=== PATIENT | female | born 1965 | race Caucasian/White ===

== ENCOUNTER 2016-10-24 15:10 | Inpatient (IN) | payer OTHER ==
[~2016-10-24] VITALS: Ht 157.5 cm; Wt 153.1 kg
[2016-10-24 15:19] VITALS: BP 187/104; PULSE 105; RESP 18; TEMP 98; O2SAT 94
--- NOTE | 2016-10-24 15:26 | PD ---
HPI . Lucero Act Chief Complaint: Psychiatric Time Seen by Provider: 15:20 Travel History International Travel<30 days: No Contact w/Intl Traveler<30days: No History of Present Illness HPI The patient was brought here as a Lucero Act by law enforcement. No meaningful history can be obtained from the patient. Her papers state that she has a history of bipolar disorder and is noncompliant with her medications. She has become psychotic and aggressive towards her family. She has been destructive in her home. [facility]LY [facility] Social History Tobacco Use: No Allergies-Medications (Allergen,Severity, Reaction): Coded Allergies: No Known Allergies (Unverified , 10/24/16) Reported Meds & Prescriptions Reported Meds & Active Scripts Active Active Prescriptions or Reported Medications Unobtainable Review of Systems ROS Limitations: Psychotic Physical Exam Narrative GENERAL: Awake and alert. She is yelling obscenities. SKIN: Warm and dry. HEAD: Atraumatic. Normocephalic. EYES: Pupils equal and round. Extraocular movements are intact. NECK: Trachea midline. CARDIOVASCULAR: Regular rate and rhythm. RESPIRATORY: No accessory muscle use. MUSCULOSKELETAL: No obvious deformities. No edema. NEUROLOGICAL: Awake and alert. No obvious cranial nerve deficits. Motor grossly within normal limits. Normal speech. PSYCHIATRIC: Loud and angry. Poor judgment. Data Data Last Documented VS Vital Signs Date Time Temp Pulse Resp B/P Pulse Ox O2 Delivery O2 Flow Rate FiO2 10/24/16 15:19 98.0 105 18 187/104 94 Orders Complete Blood Count With Diff (10/24/16 15:20) Comprehensive Metabolic Panel (10/24/16 15:20) Psych Screen (10/24/16 15:20) Drug Screen, Random Urine (10/24/16 15:20) Alcohol (Ethanol) (10/24/16 15:20) Sodium Chlor 0.9% 1000 Ml Inj (Ns 1000 M (10/24/16 15:45) Labs Laboratory Tests Test 10/24/16 10/24/16 15:30 15:49 White Blood Count 15.2 TH/MM3 Red Blood Count 4.98 MIL/MM3 Hemoglobin 13.0 GM/DL Hematocrit 41.7 % Mean Corpuscular Volume 83.9 FL Mean Corpuscular Hemoglobin 26.2 PG Mean Corpuscular Hemoglobin 31.3 % Concent Red Cell Distribution Width 15.9 % Platelet Count 402 TH/MM3 Mean Platelet Volume 9.6 FL Neutrophils (%) (Auto) 66.6 % Lymphocytes (%) (Auto) 23.7 % Monocytes (%) (Auto) 8.3 % Eosinophils (%) (Auto) 1.1 % Basophils (%) (Auto) 0.3 % Neutrophils # (Auto) 10.1 TH/MM3 Lymphocytes # (Auto) 3.6 TH/MM3 Monocytes # (Auto) 1.3 TH/MM3 Eosinophils # (Auto) 0.2 TH/MM3 Basophils # (Auto) 0.1 TH/MM3 CBC Comment DIFF FINAL Differential Comment Sodium Level 137 MEQ/L Potassium Level 3.6 MEQ/L Chloride Level 99 MEQ/L Carbon Dioxide Level 24.0 MEQ/L Anion Gap 14 MEQ/L Blood Urea Nitrogen 19 MG/DL Creatinine 1.25 MG/DL Estimat Glomerular Filtration 45 ML/MIN Rate Random Glucose 167 MG/DL Calcium Level 9.6 MG/DL Total Bilirubin 0.6 MG/DL Aspartate Amino Transf 68 U/L (AST/SGOT) Alanine Aminotransferase 50 U/L (ALT/SGPT) Alkaline Phosphatase 118 U/L Total Protein 9.4 GM/DL Albumin 3.8 GM/DL Ethyl Alcohol Level LESS THAN 3 MG/DL Urine Opiates Screen NEG Urine Barbiturates Screen NEG Urine Amphetamines Screen NEG Urine Benzodiazepines Screen NEG Urine Cocaine Screen NEG Urine Cannabinoids Screen NEG MDM Medical Decision Making Medical Screen Exam Complete: Yes Emergency Medical Condition: Yes Medical Record Reviewed: Yes (this patient has no previous records here.) Differential Diagnosis Differential diagnosis of psychosis includes but is not limited to schizophrenia , schizoaffective disorder, bipolar disorder, intoxication, substance abuse, dementia Narrative Course Patient is brought to us as a Lucero Act. She will be medically cleared and referred to psychiatry. CBC & BMP Diagram 10/24/16 15:30 Her tox screen is negative. This patient is medically clear for psychiatric evaluation. Diagnosis Primary Impression: Medical clearance for psychiatric admission Scripts Unable to Obtain Active Prescriptions or Reported Meds Condition: Amanda Pool MD Oct 24, 2016 15:26
[2016-10-24] MEDS ORDERED: SODIUM CHLOR 0.9% 1000 ML INJ 1,000 ML IV ONE (15:45)
[2016-10-24 16:03] LABS: AUTOMATED NEUTROPHIL # 10.1 TH/MM3 (1.8-7.7); BASOPHIL # 0.1 TH/MM3 (0-0.2); BASOPHIL % 0.3 % (0.0-2.0); EOSINOPHIL # 0.2 TH/MM3 (0-0.4); EOSINOPHIL % 1.1 % (0.0-4.0); HEMATOCRIT 41.7 % (35.0-46.0); HEMO FLAGS DIFF FINAL; LYMPH % 23.7 % (9.0-44.0); LYMPHOCYTE # 3.6 TH/MM3 (1.0-4.8); MEAN CELL VOLUME 83.9 FL (80.0-100.0); MEAN CORPUSCULAR HEMOGLOBIN 26.2 PG (27.0-34.0); MEAN CORPUSCULAR HGB CONC 31.3 % (32.0-36.0); MONO % 8.3 % (0.0-8.0); NEUT % 66.6 % (16.0-70.0); PLATELET COUNT 402 TH/MM3 (150-450); RED BLOOD COUNT 4.98 MIL/MM3 (4.00-5.30); RED CELL DISTRIBUTION WIDTH 15.9 % (11.6-17.2); WHITE BLOOD COUNT 15.2 TH/MM3 (4.0-11.0)
[2016-10-24 16:32] LABS: AMPHETAMINE, URINE NEG (NEG); BARBITURATES, URINE NEG (NEG); COCAINE, URINE NEG (NEG)
[2016-10-24 16:35] LABS: ALT (GPT) 50 U/L (10-53); ANION GAP 14 MEQ/L (5-15); AST (GOT) 68 U/L (15-37); BLOOD UREA NITROGEN 19 MG/DL (7-18); CHLORIDE 99 MEQ/L (98-107); GLOMERULAR FILTRATION RATE 45 ML/MIN (>89); POTASSIUM 3.6 MEQ/L (3.5-5.1); SODIUM (NA) 137 MEQ/L (136-145)
[2016-10-24 16:37] LABS: ALKALINE PHOSPHATASE 118 U/L (45-117); TOTAL BILIRUBIN ADULT 0.6 MG/DL (0.2-1.0)
[2016-10-24 17:34] VITALS: BP 183/99; PULSE 104; RESP 21; TEMP 98.1; O2SAT 97
[2016-10-24 18:52] VITALS: BP 118/58; PULSE 105; RESP 16; O2SAT 98
--- NOTE | 2016-10-24 19:10 | PD ---
Physical Exam Date Seen by Provider: Oct 24, 2016 Time Seen by Provider: 18:50 Narrative I was called to [facility] pod for [facility]. Patient was recently moved to the [facility], was initially conversant but was found down by psychiatric nurses, cyanotic, laying on the bed, urinary incontinence noted. She was placed in supine position by us, [id number] initiated with improvement cyanosis. She is having sonorous respirations which are spontaneous. Good air movement bilaterally. Palpable pulses. Blood pressure was 200/100. Blood sugar was elevated. Notable EKG shows normal sinus perfusing rhythm. Patient was then moved to delta pod and signed out to Dr. Small. Data Data Last Documented VS Vital Signs Date Time Temp Pulse Resp B/P Pulse Ox O2 Delivery O2 Flow Rate FiO2 10/24/16 18:52 105 16 118/58 98 Non-Rebreather 15 10/24/16 17:34 98.1 Orders Complete Blood Count With Diff (10/24/16 15:20) Comprehensive Metabolic Panel (10/24/16 15:20) Psych Screen (10/24/16 15:20) Drug Screen, Random Urine (10/24/16 15:20) Alcohol (Ethanol) (10/24/16 15:20) Sodium Chlor 0.9% 1000 Ml Inj (Ns 1000 M (10/24/16 15:45) Labs Laboratory Tests Test 10/24/16 10/24/16 15:30 15:49 White Blood Count 15.2 TH/MM3 Red Blood Count 4.98 MIL/MM3 Hemoglobin 13.0 GM/DL Hematocrit 41.7 % Mean Corpuscular Volume 83.9 FL Mean Corpuscular Hemoglobin 26.2 PG Mean Corpuscular Hemoglobin 31.3 % Concent Red Cell Distribution Width 15.9 % Platelet Count 402 TH/MM3 Mean Platelet Volume 9.6 FL Neutrophils (%) (Auto) 66.6 % Lymphocytes (%) (Auto) 23.7 % Monocytes (%) (Auto) 8.3 % Eosinophils (%) (Auto) 1.1 % Basophils (%) (Auto) 0.3 % Neutrophils # (Auto) 10.1 TH/MM3 Lymphocytes # (Auto) 3.6 TH/MM3 Monocytes # (Auto) 1.3 TH/MM3 Eosinophils # (Auto) 0.2 TH/MM3 Basophils # (Auto) 0.1 TH/MM3 CBC Comment DIFF FINAL Differential Comment Sodium Level 137 MEQ/L Potassium Level 3.6 MEQ/L Chloride Level 99 MEQ/L Carbon Dioxide Level 24.0 MEQ/L Anion Gap 14 MEQ/L Blood Urea Nitrogen 19 MG/DL Creatinine 1.25 MG/DL Estimat Glomerular Filtration 45 ML/MIN Rate Random Glucose 167 MG/DL Calcium Level 9.6 MG/DL Total Bilirubin 0.6 MG/DL Aspartate Amino Transf 68 U/L (AST/SGOT) Alanine Aminotransferase 50 U/L (ALT/SGPT) Alkaline Phosphatase 118 U/L Total Protein 9.4 GM/DL Albumin 3.8 GM/DL Ethyl Alcohol Level LESS THAN 3 MG/DL Urine Opiates Screen NEG Urine Barbiturates Screen NEG Urine Amphetamines Screen NEG Urine Benzodiazepines Screen NEG Urine Cocaine Screen NEG Urine Cannabinoids Screen NEG MDM Medical Record Reviewed: Yes Supervised Visit with JENNY: No Physician Communication Physician Communication Case signed off to Dr. Small for further evaluation and treatment. Diagnosis Primary Impression: Unresponsive episode Admitting Information Admitting Physician Requests: Admit Scripts Unable to Obtain Active Prescriptions or Reported Meds Sherman Woodard MD Oct 24, 2016 19:10
[2016-10-24] MEDS ORDERED: levETIRAcetam 1000 MG INJ 100 ML IV ONE (19:15)
[2016-10-24] MEDS ORDERED: SODIUM CHLOR 0.9% 1000 ML INJ 1,000 ML IV SCH (19:15)
--- NOTE | 2016-10-24 19:47 | PD ---
HPI Chief Complaint: Psychiatric Symptoms Time Seen by Provider: 18:57 Travel History International Travel<30 days: No Contact w/Intl Traveler<30days: No Traveled to known affect area: No History of Present Illness HPI 51-year-old female was brought to the medical room from psychiatric area of the emergency room.. Patient was seen this morning in medical area of the emergency room. Patient was reported to have psychiatric history, bipolar disorder . Patient was medically cleared and moved to psychiatric area of the emergency room for psychiatric evaluation. Patient was found unresponsive with dusky color on the face. Patient had urinary incontinence at that time. ROSALIND MORAN was called. ED physician came to see the patient at bedside. Patient was unresponsive without any movement. Patient was given oxygen. Patient had pulse and blood pressure at that time. Patient was brought to medical bed for evaluation. Patient was lethargic and answer questions occasionally. Patient states that she has history of seizure and has not been taking her seizure medication. Patient denies any headache. Patient denies any chest pain or shortness of breath. Patient denies abdominal pain. 1952 PM. Patient now states that to me and Dr. Lira that she does not have any history of seizure. PFSH Past Medical History Bipolar Disorder: Yes Diminished Hearing: No Hypertension: Yes Tetanus Vaccination: Unknown Influenza Vaccination: No ?: Not Past Surgical History Hysterectomy: Yes Social History Alcohol Use: No Tobacco Use: No Substance Use: No Allergies-Medications (Allergen,Severity, Reaction): Coded Allergies: No Known Allergies (Unverified , 10/24/16) Reported Meds & Prescriptions Reported Meds & Active Scripts Active Active Prescriptions or Reported Medications Unobtainable Review of Systems General / Constitutional: No: Fever Eyes: No: Visual changes HENT: No: Headaches Cardiovascular: No: Chest Pain or Discomfort Respiratory: No: Shortness of Breath Gastrointestinal: No: Abdominal Pain Genitourinary: No: Dysuria Musculoskeletal: No: Pain Skin: No Rash Neurologic: No: Weakness Psychiatric: No: Depression Endocrine: No: Polydipsia Hematologic/Lymphatic: No: Easy Bruising Physical Exam Narrative GENERAL: Well-nourished, well-developed patient. SKIN: Focused skin assessment warm/dry. HEAD: Normocephalic. EYES: No scleral icterus. No injection or drainage. Pupils 2 mm equal reactive. NECK: Supple, trachea midline. No JVD or lymphadenopathy. CARDIOVASCULAR: Regular rate and rhythm without murmurs, gallops, or rubs. RESPIRATORY: Breath sounds equal bilaterally. No accessory muscle use. GASTROINTESTINAL: Abdomen soft, non-tender, nondistended. MUSCULOSKELETAL: No cyanosis, or edema. BACK: Nontender without obvious deformity. No CVA tenderness. Neurologic exam: Patient's lethargic. Patient answers questions appropriately. Patient moves all extremity well. No obvious focal neurological deficit. Data Data Last Documented VS Vital Signs Date Time Temp Pulse Resp B/P Pulse Ox O2 Delivery O2 Flow Rate FiO2 10/24/16 18:52 105 16 118/58 98 Non-Rebreather 15 10/24/16 17:34 98.1 Orders Complete Blood Count With Diff (10/24/16 15:20) Comprehensive Metabolic Panel (10/24/16 15:20) Psych Screen (10/24/16 15:20) Drug Screen, Random Urine (10/24/16 15:20) Alcohol (Ethanol) (10/24/16 15:20) Sodium Chlor 0.9% 1000 Ml Inj (Ns 1000 M (10/24/16 15:45) Basic Metabolic Panel (Bmp) (10/24/16 19:09) Ct Brain W/O Iv Contrast(Rout) (10/24/16 19:09) Iv Access Insert/Monitor (10/24/16 19:09) Ecg Monitoring (10/24/16 19:09) Oximetry (10/24/16 19:09) Levetiracetam 1000 Mg Inj (Keppra 1000 M (10/24/16 19:15) Sodium Chlor 0.9% 1000 Ml Inj (Ns 1000 M (10/24/16 19:15) Consult Neurology (10/24/16 ) (Hub Use Only)Inp Phy Cons/Ref (10/24/16 ) Arterial Blood Gas (Abg) (10/24/16 ) Creatine Kinase (Cpk) (10/24/16 20:16) Troponin I (10/24/16 20:16) B-Type Natriuretic Peptide (10/24/16 20:16) Electrocardiogram (10/24/16 19:00) CKMB (10/24/16 19:00) CKMB% (10/24/16 19:00) Labs Laboratory Tests Test 10/24/16 10/24/16 10/24/1617 15:30 15:49 19:00 20:13 White Blood Count 15.2 TH/MM3 Red Blood Count 4.98 MIL/MM3 Hemoglobin 13.0 GM/DL Hematocrit 41.7 % Mean Corpuscular Volume 83.9 FL Mean Corpuscular Hemoglobin 26.2 PG Mean Corpuscular Hemoglobin 31.3 % Concent Red Cell Distribution Width 15.9 % Platelet Count 402 TH/MM3 Mean Platelet Volume 9.6 FL Neutrophils (%) (Auto) 66.6 % Lymphocytes (%) (Auto) 23.7 % Monocytes (%) (Auto) 8.3 % Eosinophils (%) (Auto) 1.1 % Basophils (%) (Auto) 0.3 % Neutrophils # (Auto) 10.1 TH/MM3 Lymphocytes # (Auto) 3.6 TH/MM3 Monocytes # (Auto) 1.3 TH/MM3 Eosinophils # (Auto) 0.2 TH/MM3 Basophils # (Auto) 0.1 TH/MM3 CBC Comment DIFF FINAL Differential Comment Sodium Level 137 MEQ/L 135 MEQ/L Potassium Level 3.6 MEQ/L 3.3 MEQ/L Chloride Level 99 MEQ/L 97 MEQ/L Carbon Dioxide Level 24.0 MEQ/L 18.3 MEQ/L Anion Gap 14 MEQ/L 20 MEQ/L Blood Urea Nitrogen 19 MG/DL 19 MG/DL Creatinine 1.25 MG/DL 1.57 MG/DL Estimat Glomerular Filtration 45 ML/MIN 35 ML/MIN Rate Random Glucose 167 MG/DL 284 MG/DL Calcium Level 9.6 MG/DL 9.6 MG/DL Total Bilirubin 0.6 MG/DL Aspartate Amino Transf 68 U/L (AST/SGOT) Alanine Aminotransferase 50 U/L (ALT/SGPT) Alkaline Phosphatase 118 U/L B-Type Natriuretic Peptide 48 PG/ML Total Protein 9.4 GM/DL Albumin 3.8 GM/DL Ethyl Alcohol Level LESS THAN 3 MG/DL Urine Opiates Screen NEG Urine Barbiturates Screen NEG Urine Amphetamines Screen NEG Urine Benzodiazepines Screen NEG Urine Cocaine Screen NEG Urine Cannabinoids Screen NEG Total Creatine Kinase 1479 U/L Creatine Kinase MB 2.2 NG/ML Creatine Kinase MB % 0.1 % Troponin I 0.13 NG/ML Blood Gas Puncture Site LT RADIAL Blood Gas Patient Temperature 98.6 Blood Gas HCO3 25 mmol/L Blood Gas Base Excess -0.1 mmol/L Blood Gas Oxygen Saturation 89 % Arterial Blood pH 7.37 Arterial Blood Partial 44 mmHg Pressure CO2 Arterial Blood Partial 65 mmHG Pressure O2 Arterial Blood Oxygen Content 15.1 Vol % Arterial Blood 1.0 % Carboxyhemoglobin Arterial Blood Methemoglobin 0.5 % Blood Gas Hemoglobin 12.1 G/DL Oxygen Delivery Device NASAL CANNULA Blood Gas Liter Flow 2 L/M MDM Medical Decision Making Medical Screen Exam Complete: Yes Emergency Medical Condition: Yes Interpretation(s) 21:35 PM. ABG patient is on 2 L nasal cannula pH 7.37. PCO2 44. PO2 65. O2 sat 89%. CBC WBC 15.2. Normal differential. Sodium 135. Potassium 3.3. Chloride 97. Bicarbonate 18.3. BUN 19. Creatinine 1.57. Glucose 284. Total CK 1479. Normal MB fraction. Troponin 0.13. Urine tox screen negative. Alcohol negative. Differential Diagnosis Differential diagnosis including apnea, seizure disorder, pulmonary arrest, aspiration, TIA, CVA, arrhythmia. Narrative Course 51-year-old female with episode of unresponsiveness. Unknown cause. Patient states that she has history of seizure after the episode however now states that she does not have any history of seizure. I spoke with neurologist before patient states that she does not history of seizure. Keppra 1 g IV given. We will hold off Keppra for now until EEG and neurology consultation. Diagnosis Primary Impression: Unresponsive episode Additional Impressions: Elevated troponin Rhabdomyolysis Qualified Code: M62.82 - Non-traumatic rhabdomyolysis Renal insufficiency Psychosis Qualified Code: F29 - Psychosis, unspecified psychosis type Admitting Information Admitting Physician Requests: Admit Scripts Unable to Obtain Active Prescriptions or Reported Meds Mich Samll MD Oct 24, 2016 19:47
[2016-10-24 20:24] LABS: BLOOD GAS BASE EXCESS -0.1 mmol/L (-2-2); BLOOD GAS HCO3 25 mmol/L (22-26); BLOOD GAS METHEMOGLOBIN 0.5 % (0-2); BLOOD GAS O2 HGB SATURATION 89 % (90-100); BLOOD GAS OXYGEN CONTENT 15.1 Vol % (12.0-20.0); BLOOD GAS PCO2 44 mmHg (38-42); BLOOD GAS PO2 65 mmHG (61-120); BLOOD GAS TOTAL HGB 12.1 G/DL (12.0-16.0); CRITICAL VALUE YES; DRAW SITE LT RADIAL; LITER FLOW 2 L/M; NUMBER OF ARTERIAL PUNCTURES 1; OXYGEN DEVICE NASAL CANNULA; TEMP CORR TO 98.6; ULNAR PULSE PRESENT
[2016-10-24 20:25] LABS: STAT YES
[2016-10-24 20:26] LABS: BICARBONATE 18.3 MEQ/L (21.0-32.0); POTASSIUM 3.3 MEQ/L (3.5-5.1)
[2016-10-24 21:22] LABS: CKMB 2.2 NG/ML (0.5-3.6)
--- NOTE | 2016-10-24 22:02 | RADRPT ---
EXAM DATE/TIME: 10/24/2016 21:56 [facility] COMPARISON: No previous studies available for comparison. INDICATIONS : Altered mental status. MEDICAL HISTORY : Unobtainable. SURGICAL HISTORY : Unobtainable. ENCOUNTER: Initial ACUITY: 1 day PAIN SCORE: Non-responsive. LOCATION: Bilateral chest FINDINGS: A single view of the chest demonstrates the lungs to be symmetrically aerated without evidence of mas s, infiltrate or effusion. Cardiomegaly. The cardiomediastinal contours are unremarkable. Osseous s tructures are intact. CONCLUSION: Cardiomegaly with clear lungs. Omi Shetty MD on October 24, 2016 at 22:00 Board Certified Radiologist. This report was verified electronically.
--- NOTE | 2016-10-24 22:24 | RADRPT ---
EXAM DATE/TIME: 10/24/2016 21:59 [facility] COMPARISON: No previous studies available for comparison. INDICATIONS : Altered mental status. RADIATION DOSE: 50.74 CTDIvol (mGy) MEDICAL HISTORY : Hypertension. Bipolar disorder. SURGICAL HISTORY : Hysterectomy. ENCOUNTER: Initial ACUITY: 1 day PAIN SCALE: 0/10 LOCATION: cranial TECHNIQUE: Multiple contiguous axial images were obtained of the head. Using automated exposure control and adj ustment of the mA and/or kV according to patient size, radiation dose was kept as low as reasonably a chievable to obtain optimal diagnostic quality images. DICOM format image data is available electro nically for review and comparison. FINDINGS: There is artifact at the skull base CEREBRUM: The ventricles are normal for age. No evidence of midline shift, mass lesion, hemorrhage or acute in farction. No extra-axial fluid collections are seen. POSTERIOR FOSSA: The cerebellum and brainstem are intact. The 4th ventricle is midline. The cerebellopontine angle i s unremarkable. EXTRACRANIAL: The visualized portion of the orbits is intact. SKULL: The calvaria is intact. No evidence of skull fracture. CONCLUSION: No acute intracranial disease. Omi Shetty MD on October 24, 2016 at 22:22 Board Certified Radiologist. This report was verified electronically.
[2016-10-24] MEDS ORDERED: LORazepam 2 MG/ML VIAL IV PUSH ONE (22:30)
[2016-10-24] MEDS ORDERED: SODIUM CHLORIDE 0.9% FLUSH 10 ML FLUSH IVF PRN (22:45)
[2016-10-24] MEDS ORDERED: ONDANSETRON HCL 4 MG/2 ML VIAL IV PRN ×2 (22:45→23:00)
--- NOTE | 2016-10-24 22:45 | HHI.HP ---
HPI Service Critical Care Medicine Primary Care Physician Unknown Admission Diagnosis apnea. Elevated troponin. Rhabdomyolysis. Renal insufficiency. Diagnosis: Travel History International Travel<30 Days: No Contact w/Intl Traveler <30 Da: No Traveled to Known Affected Are: No History of Present Illness 51-year-old female patient was brought here as a Lucero Act by law enforcement. No meaningful history can be obtained from the patient. Her papers state that she has a history of bipolar disorder and is noncompliant with her medications. She has become psychotic and aggressive towards her family. She has been destructive in her home. Patient was medically cleared and moved to psychiatric area of the emergency room for psychiatric evaluation. Patient was found unresponsive with dusky color on the face. She has had a urinary incontinence at that time. ROSALIND MORAN was called. ED physician came to see the patient at bedside. Patient was unresponsive without any movement. Patient was given oxygen. Patient had pulse and blood pressure at that time. Patient was brought to medical bed for evaluation. Patient was lethargic and answer questions occasionally. Patient states that she has history of seizure and has not been taking her seizure medication. Patient denies any headache. Patient denies any chest pain or shortness of breath. Patient denies abdominal pain. Review of Systems ROS Undetectable due to patient's altered mental status Past Family Social History Allergies: Coded Allergies: No Known Allergies (Unverified , 10/24/16) Past Medical History Bipolar Disorder Hypertension Past Surgical History Hysterectomy Reported Medications Reported Meds & Active Scripts Active Active Prescriptions or Reported Medications Unobtainable Active Ordered Medications Current Medications Medications (Trade) Dose Ordered Sig/Gracie Route PRN Reason Start Time Stop Time Status Last Admin Dose Admin Sodium Chloride (NS 1000 ml Inj) 1,000 ml @ 84 mls/hr [id number] IV 10/24/16 22:46 Sodium Chloride (NS Flush) 2 ml UNSCH PRN .XX FLUSH AFTER USING IV ACCESS 10/24/16 23:00 Sodium Chloride (NS Flush) 2 ml BID .XX 10/25/16 09:00 Acetaminophen (Tylenol) 650 mg Q6H PRN PO PAIN 1-10 AND/OR FEVER >101F 10/24/16 23:00 Famotidine (Pepcid) 20 mg Q12HR PO 10/25/16 09:00 Lorazepam (Ativan Inj) 1 mg Q1H PRN IV Agitation/Sedation 10/24/16 23:00 Ondansetron HCl (Zofran Inj) 4 mg Q6H PRN IV NAUSEA OR VOMITING 10/24/16 23:00 Heparin Sodium (Porcine) (Heparin Inj) 5,000 units Q8H SQ 10/24/16 23:00 Miscellaneous Information 1 [id number] XX 10/24/16 23:00 Chlorhexidine Gluconate (Chlorhexidine 2% Cloth) 3 pack Taper DAILY@04 TOP 10/25/16 04:00 10/21/17 03:59 Chlorhexidine Gluconate (Chlorhexidine 2% Cloth) 3 pack UNSCH PRN TOP HYGIENIC CARE 10/24/16 23:00 Senna/Docusate Sodium (Tianna-Colace) 1 tab BID PO 10/25/16 09:00 Magnesium Hydroxide (Milk Of Magnesia Liq) 30 ml Q12H PRN PO MILD - MODERATE CONSTIPATION 10/24/16 23:00 Sennosides (Senokot) 17.2 mg Q12H PRN PO MODERATE - SEVERE CONSTIPATION 10/24/16 23:00 Bisacodyl (Dulcolax Supp) 10 mg DAILY PRN RECTAL SEVERE CONSITIPATION 10/24/16 23:00 Lactulose (Lactulose Liq) 30 ml DAILY PRN PO SEVERE CONSITIPATION 10/24/16 23:00 Family History No family history of seizure, cancer or early coronary disease Social History No history of alcohol tobacco or illicit drug abuse Physical Exam Vital Signs Vital Signs Date Time Temp Pulse Resp B/P Pulse Ox O2 Delivery O2 Flow Rate FiO2 10/24/16 18:52 105 16 118/58 98 Non-Rebreather 15 10/24/16 17:34 98.1 104 21 183/99 97 Room Air 10/24/16 15:19 98.0 105 18 187/104 94 Physical Exam GENERAL: Morbidly obese female with altered mental status inappropriate answers SKIN: Warm and dry. HEAD: Normocephalic. EYES: No scleral icterus. No injection or drainage. NECK: Supple, trachea midline. No JVD or lymphadenopathy. CARDIOVASCULAR: Regular rate and rhythm without murmurs, gallops, or rubs. RESPIRATORY: Breath sounds equal bilaterally. No accessory muscle use. GASTROINTESTINAL: Abdomen soft, non-tender, nondistended. MUSCULOSKELETAL: No cyanosis, or edema. BACK: Nontender without obvious deformity. No CVA tenderness. EXTREMITIES: No clubbing or cyanosis Laboratory Laboratory Tests Test 10/24/16 10/24/16 10/24/16 10/24/16 15:30 15:49 19:00 20:13 White Blood Count 15.2 Red Blood Count 4.98 Hemoglobin 13.0 Hematocrit 41.7 Mean Corpuscular Volume 83.9 Mean Corpuscular Hemoglobin 26.2 Mean Corpuscular Hemoglobin 31.3 Concent Red Cell Distribution Width 15.9 Platelet Count 402 Mean Platelet Volume 9.6 Neutrophils (%) (Auto) 66.6 Lymphocytes (%) (Auto) 23.7 Monocytes (%) (Auto) 8.3 Eosinophils (%) (Auto) 1.1 Basophils (%) (Auto) 0.3 Neutrophils # (Auto) 10.1 Lymphocytes # (Auto) 3.6 Monocytes # (Auto) 1.3 Eosinophils # (Auto) 0.2 Basophils # (Auto) 0.1 CBC Comment DIFF FINAL Differential Comment Sodium Level 137 135 Potassium Level 3.6 3.3 Chloride Level 99 97 Carbon Dioxide Level 24.0 18.3 Anion Gap 14 20 Blood Urea Nitrogen 19 19 Creatinine 1.25 1.57 Estimat Glomerular Filtration 45 35 Rate Random Glucose 167 284 Calcium Level 9.6 9.6 Total Bilirubin 0.6 Aspartate Amino Transf 68 (AST/SGOT) Alanine Aminotransferase 50 (ALT/SGPT) Alkaline Phosphatase 118 B-Type Natriuretic Peptide 48 Total Protein 9.4 Albumin 3.8 Ethyl Alcohol Level LESS THAN 3 Urine Opiates Screen NEG Urine Barbiturates Screen NEG Urine Amphetamines Screen NEG Urine Benzodiazepines Screen NEG Urine Cocaine Screen NEG Urine Cannabinoids Screen NEG Total Creatine Kinase 1479 Creatine Kinase MB 2.2 Creatine Kinase MB % 0.1 Troponin I 0.13 Blood Gas Puncture Site LT RADIAL Blood Gas Patient Temperature 98.6 Blood Gas HCO3 25 Blood Gas Base Excess -0.1 Blood Gas Oxygen Saturation 89 Arterial Blood pH 7.37 Arterial Blood Partial 44 Pressure CO2 Arterial Blood Partial 65 Pressure O2 Arterial Blood Oxygen Content 15.1 Arterial Blood 1.0 Carboxyhemoglobin Arterial Blood Methemoglobin 0.5 Blood Gas Hemoglobin 12.1 Oxygen Delivery Device NASAL CANNULA Blood Gas Liter Flow 2 Result Diagram: 10/24/16 1530 10/24/16 1900 Imaging Last 24 hours Impressions Chest X-Ray 10/24/162142 Signed Impressions: Service Date/Time: Monday, October 24, 2016 21:56 - CONCLUSION: Cardiomegaly with clear lungs. Omi Shetty MD Head CT 10/24/16 1909 Signed Impressions: Service Date/Time: Monday, October 24, 2016 21:59 - CONCLUSION: No acute intracranial disease. Omi Shetty MD Assessment and Plan Assessment and Plan Respiratory failure with hypoxemia - Untreated KELVIN versus obesity hypoventilation syndrome - BiPAP when necessary - DuoNeb's - Repeat ABG and CXR - Pulmonary consult Bipolar disorder - Management per psychiatry Seizure disorder - IV Keppra DVT GI prophylaxis - Lovenox teds SCDs and Pepcid Critical Care: The total critical care time was 35 minutes. Time to perform other separately billable procedures was not included in the critical care time. Huseyin Cyr MD Oct 24, 2016 22:45
[2016-10-24] MEDS ORDERED: RESP: ALBUTEROL 2.5 MG/IPRATROPIUM 0.5 MG NEB (PRN) INH (23:00)
[2016-10-24] MEDS ORDERED: MAGNESIUM HYDROXIDE SUSP 30 ML CUP PO PRN (23:00)
[2016-10-24] MEDS ORDERED: CHLORHEXIDINE GLUCONATE 2 % 1 PACK (2 CLOTHS) TOP PRN (23:00)
[2016-10-24] MEDS ORDERED: MISCELLANEOUS NURSING INFORMATION XX SCH (23:00)
[2016-10-24] MEDS ORDERED: LACTULOSE SYRUP 20 GM/30 ML CUP PO PRN (23:00)
[2016-10-24] MEDS ORDERED: SODIUM CHLORIDE 0.9% FLUSH 10 ML FLUSH PRN (23:00)
[2016-10-24] MEDS ORDERED: BISACODYL 10 MG SUPP RECTAL PRN (23:00)
[2016-10-24] MEDS ORDERED: LORazepam 2 MG/ML VIAL IV PRN (23:00)
[2016-10-24] MEDS ORDERED: SENNOSIDES 8.6 MG TAB PO PRN (23:00)
[2016-10-24 23:13] VITALS: BP 127/58; PULSE 71; RESP 14; O2SAT 95
[2016-10-24] MEDS: SODIUM CHLOR 0.9% 1000 ML INJ 1,000 ML IV SCH (23:37)
[2016-10-24 23:53] VITALS: O2SAT 86; O2SAT 96; O2SAT 98
[2016-10-25] VITALS (11 sets, daily range): BP systolic 102–139; BP diastolic 51–71; PULSE 63–90; RESP 18–22; TEMP 97.4–98.7; O2SAT 93–99
[2016-10-25 00:10] LABS: ALT (GPT) 45 U/L (10-53); ANION GAP 6 MEQ/L (5-15); AST (GOT) 56 U/L (15-37); BICARBONATE 27.9 MEQ/L (21.0-32.0); BLOOD UREA NITROGEN 19 MG/DL (7-18); CHLORIDE 103 MEQ/L (98-107); GLOMERULAR FILTRATION RATE 58 ML/MIN (>89); MAGNESIUM 2.4 MG/DL (1.5-2.5); POTASSIUM 3.5 MEQ/L (3.5-5.1); SODIUM (NA) 137 MEQ/L (136-145)
[2016-10-25] MEDS: HEPARIN SODIUM - SQ 10,000 UNITS/ML VIAL SQ SCH ×3 (00:19→14:48)
[2016-10-25 00:20] LABS: ALKALINE PHOSPHATASE 104 U/L (45-117); CREATINE KINASE 1078 U/L (26-192); TOTAL BILIRUBIN ADULT 0.4 MG/DL (0.2-1.0)
[2016-10-25 00:41] LABS: CKMB 1.9 NG/ML (0.5-3.6)
[2016-10-25] MEDS: CHLORHEXIDINE GLUCONATE 2 % 1 PACK (2 CLOTHS) TOP SCH (04:00)
[2016-10-25 07:22] LABS: AUTOMATED NEUTROPHIL # 7.6 TH/MM3 (1.8-7.7); BASOPHIL # 0.1 TH/MM3 (0-0.2); EOSINOPHIL # 0.2 TH/MM3 (0-0.4); EOSINOPHIL % 1.2 % (0.0-4.0); HEMATOCRIT 36.1 % (35.0-46.0); HEMO FLAGS DIFF FINAL; LYMPH % 26.8 % (9.0-44.0); LYMPHOCYTE # 3.3 TH/MM3 (1.0-4.8); MEAN CELL VOLUME 84.7 FL (80.0-100.0); MEAN CORPUSCULAR HGB CONC 30.6 % (32.0-36.0); MONO % 9.9 % (0.0-8.0); NEUT % 61.1 % (16.0-70.0); PLATELET COUNT 314 TH/MM3 (150-450); RED BLOOD COUNT 4.26 MIL/MM3 (4.00-5.30); WHITE BLOOD COUNT 12.5 TH/MM3 (4.0-11.0)
[2016-10-25 07:47] LABS: ALT (GPT) 43 U/L (10-53); ANION GAP 9 MEQ/L (5-15); AST (GOT) 49 U/L (15-37); BICARBONATE 27.7 MEQ/L (21.0-32.0); BLOOD UREA NITROGEN 17 MG/DL (7-18); CHLORIDE 103 MEQ/L (98-107); GLOMERULAR FILTRATION RATE 52 ML/MIN (>89); MAGNESIUM 2.5 MG/DL (1.5-2.5); POTASSIUM 3.2 MEQ/L (3.5-5.1); SODIUM (NA) 140 MEQ/L (136-145)
[2016-10-25 07:51] LABS: ALKALINE PHOSPHATASE 94 U/L (45-117); TOTAL BILIRUBIN ADULT 0.3 MG/DL (0.2-1.0)
[2016-10-25] MEDS ORDERED: SODIUM CHLORIDE 0.9% FLUSH 10 ML FLUSH IV FLUSH SCH (09:00)
[2016-10-25] MEDS ORDERED: FAMOTIDINE 20 MG TAB PO SCH (09:00)
[2016-10-25] MEDS: DOCUSATE SODIUM 50 MG/SENNA 8.6 MG TAB PO SCH ×2 (10:02→21:19)
[2016-10-25] MEDS: levETIRAcetam 1000 MG INJ 100 ML IV SCH ×2 (10:02→21:21)
[2016-10-25] MEDS: SODIUM CHLORIDE 0.9% FLUSH 10 ML FLUSH SCH ×2 (10:02→21:00)
--- NOTE | 2016-10-25 11:22 | HHI.PR ---
Subjective Remarks Follow-up for respiratory failure and psychiatric issues Patient stated that breathing has improved. Denied any soreness of breathing or cough. She has no other issues. Patient stated that she has a cardiac murmur in which she is suppose to have a valve replacement by Dr. Adler. She denies any chest pain, palpitations, or lightheadedness or dizziness. Objective Vitals Vital Signs Date Time Temp Pulse Resp B/P Pulse Ox O2 Delivery O2 Flow Rate FiO2 10/25/16 07:30 65 18 135/67 98 10/25/16 07:08 95 Nasal Cannula 3.00 10/25/16 06:06 Nasal Cannula 3.00 10/25/16 05:24 64 18 130/60 96 Nasal Cannula 4 10/25/16 03:17 77 18 118/66 93 Nasal Cannula 4 10/25/16 02:09 98.7 89 18 127/59 93 Nasal Cannula 2 10/25/16 00:06 63 18 139/65 97 Nasal Cannula 4 10/24/16 23:53 96 Nasal Cannula 3 10/24/16 23:53 86 Nasal Cannula 3.00 10/24/16 23:13 71 14 127/58 95 Nasal Cannula 3 10/24/16 18:52 105 16 118/58 98 Non-Rebreather 15 10/24/16 17:34 98.1 104 21 183/99 97 Room Air 10/24/16 15:19 98.0 105 18 187/104 94 I/O 10/24/16 10/24/16 10/24/16 10/25/16 10/25/16 10/25/16 06:59 14:59 22:59 06:59 14:59 22:59 Intake Total 240 ml Balance 240 ml Intake Oral 240 ml # Voids 1 1 Result Diagram: 10/25/16 0502 10/25/16 0502 Imaging Last Impressions Chest X-Ray 10/24/162142 Signed Impressions: Service Date/Time: Monday, October 24, 2016 21:56 - CONCLUSION: Cardiomegaly with clear lungs. Omi Shetty MD Head CT 10/24/16 190 Signed Impressions: Service Date/Time: Monday, October 24, 2016 21:59 - CONCLUSION: No acute intracranial disease. Omi Shetty MD Objective Remarks GENERAL: morbid obese female in NAD SKIN: Warm and dry. HEAD: Normocephalic. EYES: No scleral icterus. No injection or drainage. NECK: Supple, trachea midline. No JVD or lymphadenopathy. CARDIOVASCULAR: Regular rate and rhythm. 3/6 systolic heart murmur. RESPIRATORY: Breath sounds equal bilaterally. No accessory muscle use. GASTROINTESTINAL: Abdomen soft, non-tender, nondistended. MUSCULOSKELETAL: No cyanosis, or edema. BACK: Nontender without obvious deformity. No CVA tenderness. Medications and IVs Current Medications Sodium Chloride 1,000 ml @ 999 mls/hr BOLUS ONCE IV Last administered on 10/24 16:38; Start 10/24/16 at 15:45; Stop 10/24/16 at 16:45; Status DC Levetriacetam 100 ml @ 400 mls/hr BOLUS ONCE IV Last administered on 19:30; Start 10/24/16 at 19:15; Stop 10/24/16 at 19:29; Status DC Sodium Chloride (NS 1000 ml Inj) 1,000 ml @ 100 mls/hr Q10H IV Last administered on 10/24/16 19:14; Start 10/24/16 at 19:15; Stop 10/24/16 at 22:52 ; Status DC Lorazepam (Ativan Inj) 1 mg ONCE ONCE IV PUSH Last administered on 10/24/16 22:41; Start 10/24/16 at 22:30; Stop 10/24/16 at 22:31; Status DC Ondansetron HCl (Zofran Inj) 4 mg Q6H PRN IV NAUSEA OR VOMITING; Start at 22:45; Stop 10/24/16 at 22:52; Status DC Sodium Chloride (NS Flush) 2 ml BID IV FLUSH ; Start 10/25/16 at 09:00; Stop at 09:00; Status DC Sodium Chloride 2 ml 2 ml UNSCH PRN IVF FLUSH AFTER USING IV ACCESS; Start at 22:45; Stop 10/24/16 at 22:52; Status DC Sodium Chloride (NS 1000 ml Inj) 1,000 ml @ 84 mls/hr [id number] IV Last administered on 10/24/16 23:37; Start 10/24/16 at 22:46 Sodium Chloride (NS Flush) 2 ml UNSCH PRN .XX FLUSH AFTER USING IV ACCESS; Start 10/24/16 at 23:00 Sodium Chloride (NS Flush) 2 ml BID .XX Last administered on 10/25/16 10:02; Start 10/25/16 at 09:00 Acetaminophen (Tylenol) 650 mg Q6H PRN PO PAIN 1-10 AND/OR FEVER >101F; Start 10/24/16 at 23:00 Famotidine (Pepcid) 20 mg Q12HR PO Last administered on 10/25/16 10:02; Start 10/25/16 at 09:00 Lorazepam (Ativan Inj) 1 mg Q1H PRN IV Agitation/Sedation; Start 10/24/16 at 23 :00 Ondansetron HCl (Zofran Inj) 4 mg Q6H PRN IV NAUSEA OR VOMITING; Start at 23:00 Albuterol/ Ipratropium (Duoneb Neb) 1 ampule Q2HR NEB PRN INH WHEEZING; Start 10/24/16 at 23:00 Heparin Sodium (Porcine) (Heparin Inj) 5,000 units Q8H SQ Last administered on 10/25/16 07:46; Start 10/24/16 at 23:00 Miscellaneous Information 1 Q361D XX ; Start 10/24/16 at 23:00 Chlorhexidine Gluconate (Chlorhexidine 2% Cloth) 3 pack Taper DAILY@04 TOP ; Start 10/25/16 at 04:00; Stop 10/21/17 at 03:59 Chlorhexidine Gluconate (Chlorhexidine 2% Cloth) 3 pack UNSCH PRN TOP HYGIENIC CARE; Start 10/24/16 at 23:00 Senna/Docusate Sodium (Tianna-Colace) 1 tab BID PO Last administered on 10:02; Start 10/25/16 at 09:00 Magnesium Hydroxide (Milk Of Magnesia Liq) 30 ml Q12H PRN PO MILD - MODERATE CONSTIPATION; Start 10/24/16 at 23:00 Sennosides (Senokot) 17.2 mg Q12H PRN PO MODERATE - SEVERE CONSTIPATION; Start 10/24/16 at 23:00 Bisacodyl (Dulcolax Supp) 10 mg DAILY PRN RECTAL SEVERE CONSITIPATION; Start at 23:00 Lactulose 30 ml 30 ml DAILY PRN PO SEVERE CONSITIPATION; Start 10/24/16 at 23: 00 Levetriacetam (Keppra 1000 Mg Inj) 100 ml @ 400 mls/hr Q12HR IV Last administered on 10/25/16t 10:02; Start 10/25/16 at 09:00 A/P Assessment and Plan Respiratory failure with hypoxemia - Untreated KELVIN versus obesity hypoventilation syndrome - BiPAP when necessary - DuoNeb's - Symptoms improving. Patient on nasal cannula and is asymptomatic. Brand Director consulted. Bipolar disorder - Management per psychiatry -Patient is Lucero act. Elevated troponins -Mildly elevated and stable. Patient does have a history of cardiac murmur. Will get a 2-D echo. -Consult cryogenic transport driver. Seizure disorder - on IV Keppra DVT GI prophylaxis - Lovenox marty SCDs and Phuong Alcala MD Oct 25, 2016 11:22
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
[2016-10-25] MEDS ORDERED: PILL SPLITTER OTHER PRN (12:30)
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
--- NOTE | 2016-10-25 13:56 | EKG ---
Date Performed: 10/24/2016 Time Performed: 19:00:45 PTAGE: 51 years EKG: NORMAL Sinus rhythm NONSPECIFIC ST-T-WAVE ABNORMALITY BORDERLINE ECG NO PREVIOUS TRACING DOCTOR: Shaun Jimenez Interpretating Date/Time 10/25/2016 13:55:59
--- NOTE | 2016-10-25 13:57 | EKG ---
Date Performed: 10/24/2016 Time Performed: 21:08:48 PTAGE: 51 years EKG: Sinus rhythm NONSPECIFIC T WAVE ABNORMALITY RESOLVED FROM PRIOR TRACING BORDERLINE ECG PREVIOUS TRACING : 10/24/2016 19.00 DOCTOR: Shaun Jimenez Interpretating Date/Time 10/25/2016 13:56:30
[2016-10-25] MEDS: FAMOTIDINE 20 MG TAB PO SCH (21:19)
[2016-10-25] MEDS: SODIUM CHLOR 0.9% 1000 ML INJ 1,000 ML IV SCH (21:24)
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
[2016-10-26] VITALS: BP 160/77; PULSE 80; RESP 20; TEMP 97.6; O2SAT 96
[2016-10-26] MEDS: HEPARIN SODIUM - SQ 10,000 UNITS/ML VIAL SQ SCH ×4 (00:11→23:58)
[2016-10-26 04:00] VITALS: BP 126/59; PULSE 67; RESP 20; TEMP 98.2; O2SAT 95
[2016-10-26] MEDS: CHLORHEXIDINE GLUCONATE 2 % 1 PACK (2 CLOTHS) TOP SCH (04:00)
[2016-10-26 08:00] VITALS: BP 141/65; PULSE 81; RESP 20; TEMP 97.6; O2SAT 96
--- NOTE | 2016-10-26 08:25 | MG ---
cc: DOMINGO AGGARWAL MD Lab No: [id number] Date: 10/25/2016 Age: 51 Sex: F Race: __ DATE OF 1965 INDICATIONS 51-year-old with a history of a spells. DESCRIPTION Excessive eye movement. Frontal artifact, posterior rhythm demonstrates 8-10 Hz, 10-40 microvolt activity with excessive beta rhythms, generalized slowing, transition into drowsy followed by stage I and stage II sleep entry with appearance of spindles and K complexes, normal activity during arousals which are followed by stage II sleep. looking spindle left frontal. Sharp wave noted most prominent in the right frontal region at epoch 78. A lot of artifact during photic stimulation. Single lead EKG appears to show sinus rhythm. INTERPRETATION Isolated right frontal sharp wave, otherwise normal stage II EEG with brief episodes of wakefulness and excessive beta frequencies. Clinical correlation. MD ANNE Narayanan/JOSE /7:52 AM /8:17 AM
[2016-10-26] MEDS: levETIRAcetam 1000 MG INJ 100 ML IV SCH ×2 (08:30→21:01)
[2016-10-26] MEDS: DOCUSATE SODIUM 50 MG/SENNA 8.6 MG TAB PO SCH ×2 (08:31→21:00)
[2016-10-26] MEDS: FAMOTIDINE 20 MG TAB PO SCH ×2 (08:31→21:03)
[2016-10-26] MEDS: SODIUM CHLORIDE 0.9% FLUSH 10 ML FLUSH SCH ×2 (08:34→20:57)
[2016-10-26 09:00] LABS: HEMATOCRIT 35.3 % (35.0-46.0); MEAN CELL VOLUME 85.2 FL (80.0-100.0); MEAN CORPUSCULAR HEMOGLOBIN 26.7 PG (27.0-34.0); MEAN CORPUSCULAR HGB CONC 31.4 % (32.0-36.0); PLATELET COUNT 273 TH/MM3 (150-450); RED BLOOD COUNT 4.15 MIL/MM3 (4.00-5.30); RED CELL DISTRIBUTION WIDTH 15.8 % (11.6-17.2); REVIEW FLAG FINAL; WHITE BLOOD COUNT 10.4 TH/MM3 (4.0-11.0)
[2016-10-26 09:25] LABS: BICARBONATE 27.3 MEQ/L (21.0-32.0)
--- NOTE | 2016-10-26 09:55 | EKG ---
Date Performed: 10/25/2016 Time Performed: 09:36:39 PTAGE: 51 years EKG: Sinus rhythm LEFT ATRIAL ABNORMALITY SLIGHT NONSPECIFIC INTRAVENTRICULAR CONDUCTION DELAY Compared to prior richard ng no significant change PREVIOUS TRACING : 10/24/2016 21.08 DOCTOR: Shaun Jimenez Interpretating Date/Time 10/26/2016 09:54:35
[2016-10-26] MEDS ORDERED: POTASSIUM CHLORIDE 10 MEQ CONTROLLED RELEASE TAB PO ONE (11:00)
[2016-10-26] MEDS: SODIUM CHLOR 0.9% 1000 ML INJ 1,000 ML IV SCH ×2 (11:33→22:49)
[2016-10-26 12:00] VITALS: BP 117/74; PULSE 69; RESP 20; TEMP 98; O2SAT 94
[2016-10-26] MEDS: ACETAMINOPHEN 325 MG TAB PO PRN ×2 (13:35→21:10)
--- NOTE | 2016-10-26 15:04 | HHI.PR ---
Subjective Remarks Follow-up for respiratory failure Patient denies any shortness of breathing or cough. She stated that she has left ear pain. Denies any upper respiratory symptoms. Otherwise she has no other complaints. Objective Vitals Vital Signs Date Time Temp Pulse Resp B/P Pulse Ox O2 Delivery O2 Flow Rate FiO2 10/26/16 12:00 98.0 69 20 117/74 94 10/26/16 08:00 97.6 81 20 141/65 96 10/26/16 04:00 Nasal Cannula 2.00 10/26/16 04:00 98.2 67 20 126/59 95 10/26/16 00:00 Nasal Cannula 2.00 10/26/16 00:00 97.6 80 20 160/77 96 10/25/16 20:00 80 10/25/16 20:00 97.4 75 20 133/63 94 10/25/16 16:44 90 10/25/16 16:06 98.2 84 22 104/52 96 I/O 10/25/16 10/25/16 10/25/16 10/26/16 10/26/16 10/26/16 06:59 14:59 22:59 06:59 14:59 22:59 Intake Total 240 ml 480 ml 884 ml Balance 240 ml 480 ml 884 ml Intake Oral 240 ml 480 ml 120 ml IV Total 764 ml # Voids 1 2 0 # Bowel Movements 1 0 Result Diagram: 10/26/1673210/26/16732 Objective Remarks GENERAL: morbid obese female in NAD left eat + purulent drainage. inner eat WNL EYES: No scleral icterus. No injection or drainage. NECK: Supple, trachea midline. No JVD or lymphadenopathy. CARDIOVASCULAR: Regular rate and rhythm. 3/6 systolic heart murmur. RESPIRATORY: Breath sounds equal bilaterally. No accessory muscle use. GASTROINTESTINAL: Abdomen soft, non-tender, nondistended. MUSCULOSKELETAL: No cyanosis, or edema. BACK: Nontender without obvious deformity. No CVA tenderness. Medications and IVs Current Medications Sodium Chloride 1,000 ml @ 999 mls/hr BOLUS ONCE IV Last administered on 10/24t 16:38; Start 10/24/16 at 15:45; Stop 10/24/16 at 16:45; Status DC Levetriacetam 100 ml @ 400 mls/hr BOLUS ONCE IV Last administered on 19:30; Start 10/24/16 at 19:15; Stop 10/24/16 at 19:29; Status DC Sodium Chloride (NS 1000 ml Inj) 1,000 ml @ 100 mls/hr Q10H IV Last administered on 10/24/16 19:14; Start 10/24/16 at 19:15; Stop 10/24/16 at 22:52 ; Status DC Lorazepam (Ativan Inj) 1 mg ONCE ONCE IV PUSH Last administered on 10/24/16 22:41; Start 10/24/16 at 22:30; Stop 10/24/16 at 22:31; Status DC Ondansetron HCl (Zofran Inj) 4 mg Q6H PRN IV NAUSEA OR VOMITING; Start at 22:45; Stop 10/24/16 at 22:52; Status DC Sodium Chloride (NS Flush) 2 ml BID IV FLUSH ; Start 10/25/16 at 09:00; Stop at 09:00; Status DC Sodium Chloride 2 ml 2 ml UNSCH PRN IVF FLUSH AFTER USING IV ACCESS; Start at 22:45; Stop 10/24/16 at 22:52; Status DC Sodium Chloride (NS 1000 ml Inj) 1,000 ml @ 84 mls/hr [id number] IV Last administered on 10/26/16 11:33; Start 10/24/16 at 22:46 Sodium Chloride (NS Flush) 2 ml UNSCH PRN .XX FLUSH AFTER USING IV ACCESS; Start 10/24/16 at 23:00 Sodium Chloride (NS Flush) 2 ml BID .XX Last administered on 10/25/16 21:00; Start 10/25/16 at 09:00 Acetaminophen (Tylenol) 650 mg Q6H PRN PO PAIN 1-10 AND/OR FEVER >101F Last administered on 10/26/16 13:35; Start 10/24/16 at 23:00 Famotidine (Pepcid) 20 mg Q12HR PO Last administered on 10/25/16 10:02; Start 10/25/16 at 09:00; Stop 10/25/16 at 12:20; Status DC Lorazepam (Ativan Inj) 1 mg Q1H PRN IV Agitation/Sedation; Start 10/24/16 at 23 :00 Ondansetron HCl (Zofran Inj) 4 mg Q6H PRN IV NAUSEA OR VOMITING; Start at 23:00 Albuterol/ Ipratropium (Duoneb Neb) 1 ampule Q2HR NEB PRN INH WHEEZING; Start 10/24/16 at 23:00 Heparin Sodium (Porcine) (Heparin Inj) 5,000 units Q8H SQ Last administered on 10/26/16 13:37; Start 10/24/16 at 23:00 Miscellaneous Information 1 Q361D XX ; Start 10/24/16 at 23:00 Chlorhexidine Gluconate (Chlorhexidine 2% Cloth) 3 pack Taper DAILY@04 TOP ; Start 10/25/16 at 04:00; Stop 10/21/17 at 03:59 Chlorhexidine Gluconate (Chlorhexidine 2% Cloth) 3 pack UNSCH PRN TOP HYGIENIC CARE; Start 10/24/16 at 23:00 Senna/Docusate Sodium (Tinana-Colace) 1 tab BID PO Last administered on 08:31; Start 10/25/16 at 09:00 Magnesium Hydroxide (Milk Of Magnesia Liq) 30 ml Q12H PRN PO MILD - MODERATE CONSTIPATION; Start 10/24/16 at 23:00 Sennosides (Senokot) 17.2 mg Q12H PRN PO MODERATE - SEVERE CONSTIPATION; Start 10/24/16 at 23:00 Bisacodyl (Dulcolax Supp) 10 mg DAILY PRN RECTAL SEVERE CONSITIPATION; Start at 23:00 Lactulose 30 ml 30 ml DAILY PRN PO SEVERE CONSITIPATION; Start 10/24/16 at 23: 00 Levetriacetam (Keppra 1000 Mg Inj) 100 ml @ 400 mls/hr Q12HR IV Last administered on 10/26/16 08:30; Start 10/25/16 at 09:00 Famotidine (Pepcid) 10 mg Q12HR PO Last administered on 10/26/16 08:31; Start 10/25/16 at 21:00 Miscellaneous (Pill Splitter) 1 ea UNSCH PRN OTHER SEE LABEL COMMENTS; Start at 12:30 Potassium Chloride (KCl) 60 meq ONCE ONCE PO Last administered on 10/26/16t 11 :33; Start 10/26/16 at 11:00; Stop 10/26/16 at 11:01; Status DC Ofloxacin (Ocuflox 0.3% Opth Soln) 10 drop DAILY LEFT EAR ; Start 10/26/16 at 16 :00 A/P Assessment and Plan Respiratory failure with hypoxemia - Untreated KELVIN versus obesity hypoventilation syndrome - DuoNeb's - Symptoms improving. Patient on nasal cannula and is asymptomatic. Dedicated Truck Driver stated most likely due to sleep apnea. patient will need a sleep study as outpatient. Bipolar disorder - Management per psychiatry -Patient is Lucero act. -Patient was supposed to be admitted to inpatient psych but up CODE BLUE was called. Will reconsult psych. Hypokalemia -Will replenish and recheck K level. Elevated troponins -Mildly elevated and stable. -Per survey research center director patient does have a previous known aortic stenosis. Patient is asymptomatic and can follow-up with Dr. Hancock. Seizure disorder - on IV Keppra DVT GI prophylaxis - Lovenox teds SCDs and Pepcid Discharge Planning Pending potassium level before discharge to psych. Phuong Singh MD Oct 26, 2016 15:04
[2016-10-26 16:00] VITALS: BP 114/65; PULSE 64; RESP 20; TEMP 98.6; O2SAT 96
--- NOTE | 2016-10-26 18:49 | HHI.PR ---
Subjective Remarks 51 YO Morbidly obese female with Bipolar, SOB On 02 2LNC Breathing better no Cough or sp Objective Vital Signs Vital Signs Date Time Temp Pulse Resp B/P Pulse Ox O2 Delivery O2 Flow Rate FiO2 10/26/16 16:00 98.6 64 20 114/65 96 10/26/16 12:00 98.0 69 20 117/74 94 10/26/16 08:00 97.6 81 20 141/65 96 10/26/16 04:00 Nasal Cannula 2.00 10/26/16 04:00 98.2 67 20 126/59 95 10/26/16 00:00 Nasal Cannula 2.00 10/26/16 00:00 97.6 80 20 160/77 96 10/25/16 20:00 80 10/25/16 20:00 97.4 75 20 133/63 94 I/O 10/25/16 10/25/16 10/25/16 10/26/16 10/26/16 10/26/16 07:00 15:00 23:00 07:00 15:00 23:00 Intake Total 240 ml 480 ml 884 ml 600 ml Balance 240 ml 480 ml 884 ml 600 ml Intake Oral 240 ml 480 ml 120 ml 600 ml IV Total 764 ml # Voids 1 2 0 3 # Bowel Movements 1 0 1 Result Diagram: 10/26/1673210/26/16732 Objective Remarks GENERAL: morbidly obese female, NAD SKIN: Warm and dry. HEAD: Normocephalic. EYES: No scleral icterus. No injection or drainage. NECK: Supple, trachea midline. No JVD or lymphadenopathy. CARDIOVASCULAR: Regular rate and rhythm without murmurs, gallops, or rubs. RESPIRATORY: Breath sounds equal bilaterally. No accessory muscle use. GASTROINTESTINAL: Abdomen soft, non-tender, nondistended. MUSCULOSKELETAL: No cyanosis, or edema. BACK: Nontender without obvious deformity. No CVA tenderness. A/P Assessment and Plan Dysnoea improved Obesity hypoventilation synd likly KELVIN Bipolar PLAN: Aerosol nebs Supplement 02 PFT Will need Sleep study as out pt Eric Aviles MD Oct 26, 2016 18:49
[2016-10-26] MEDS: OFLOXACIN 0.3% OPTH SOLN 5 ML BTL LEFT EAR SCH (19:57)
[2016-10-26 20:00] VITALS: BP 128/61; PULSE 68; PULSE 69; RESP 21; TEMP 98.3; O2SAT 96
--- NOTE | 2016-10-26 21:35 | ECHRPT ---
Indication: Unspecified abnormalities of breathing CONCLUSIONS Normal left ventricular size. The left ventricular systolic function is normal with an estimated eje ction fraction in the range of 60-65%. Left ventricular diastolic function parameters are normal. Moderat e concentric LV hypertrophy Mild to moderate aortic valve stenosis. MAC BP: 135 / 67 HR: 65 Rhythm: MEASUREMENTS (Male / Female) Normal Values Technical Quality:Good 2D ECHO LV Diastolic Diameter PLAX 4.5 cm 4.2 - 5.9 / 3.9 - 5.3 cm LV Systolic Diameter PLAX 3.4 cm IVS Diastolic Thickness 2.4 cm 0.6 - 1.0 / 0.6 - 0.9 cm LVPW Diastolic Thickness 1.8 cm 0.6 - 1.0 / 0.6 - 0.9 cm LV Relative Wall Thickness 0.9 LVOT Diameter 1.9 cm M-MODE Aortic Root Diameter MM 3.1 cm LA Systolic Diameter MM 4.5 cm LA Ao Ratio MM 1.5 AV Cusp Separation MM 1.5 cm DOPPLER AV Peak Velocity 365.0 cm/s AV Peak Gradient 53.3 mmHg AV Mean Gradient 26.0 mmHg AV Velocity Time Integral 74.8 cm LVOT Peak Velocity 107.0 cm/s LVOT Peak Gradient 4.6 mmHg LVOT Velocity Time Integral 24.6 cm LVOT Cardiac Index 2009.7 cm/minm AV Area Cont Eq vti 0.9 cm AV Area Cont Eq pk 0.8 cm FINDINGS LEFT VENTRICLE Normal left ventricular Moderate concentric left ventricular hypertrophy. . The left ventricular systolic function is normal with an estimated ejection fraction in the range of 60-65%. Left ventricular diastolic function parameters are normal. RIGHT VENTRICLE Normal right ventricular size and systolic function. LEFT ATRIUM The left atrial size is normal. RIGHT ATRIUM The right atrial size is normal. ATRIAL SEPTUM Normal atrial septal thickness without atrial level shunting by limited color doppler interrogation. AORTA The aortic root and proximal ascending aorta are normal in size on limited imaging. MITRAL VALVE MAC. No mitral valve stenosis or regurgitation. AORTIC VALVE Trileaflet aortic valve. Mild to moderate aortic valve stenosis. TRICUSPID VALVE Structurally normal tricuspid valve. No tricuspid valve stenosis or regurgitation. PULMONARY VALVE The pulmonary valve is not well visualized. VESSELS The inferior vena cava is normal in size. PERICARDIUM No pericardial effusion. Henry Almodovar MD, FACC (Electronically Signed) Final Date:26 October 2016 21:35
[2016-10-27] VITALS: BP 110/55; PULSE 71; RESP 20; TEMP 98; O2SAT 96
[2016-10-27 04:00] VITALS: BP 121/76; PULSE 87; RESP 18; TEMP 98; O2SAT 97
[2016-10-27] MEDS: CHLORHEXIDINE GLUCONATE 2 % 1 PACK (2 CLOTHS) TOP SCH (04:00)
[2016-10-27] MEDS: HEPARIN SODIUM - SQ 10,000 UNITS/ML VIAL SQ SCH (05:27)
[2016-10-27 07:38] LABS: BICARBONATE 25.5 MEQ/L (21.0-32.0); POTASSIUM 3.4 MEQ/L (3.5-5.1)
[2016-10-27 08:00] VITALS: BP 136/66; PULSE 61; RESP 20; TEMP 97.4; O2SAT 97
[2016-10-27] MEDS: levETIRAcetam 1000 MG INJ 100 ML IV SCH (08:22)
[2016-10-27] MEDS: FAMOTIDINE 20 MG TAB PO SCH (08:26)
[2016-10-27] MEDS: OFLOXACIN 0.3% OPTH SOLN 5 ML BTL LEFT EAR SCH (08:26)
[2016-10-27] MEDS: DOCUSATE SODIUM 50 MG/SENNA 8.6 MG TAB PO SCH (08:26)
[2016-10-27] MEDS: SODIUM CHLORIDE 0.9% FLUSH 10 ML FLUSH SCH (08:35)
[2016-10-27 09:18] VITALS: O2SAT 97
[2016-10-27] MEDS: SODIUM CHLOR 0.9% 1000 ML INJ 1,000 ML IV SCH (10:22)
[2016-10-27 12:00] VITALS: BP 122/61; PULSE 73; RESP 20; TEMP 97.7; O2SAT 97
[2016-10-27] MEDS ORDERED: OFLO0.3D5 LEFT EAR (13:09)
[2016-10-27] MEDS ORDERED: KEPP10002 PO (13:10)
--- NOTE | 2016-10-27 13:11 | HHI.DCPOC ---
Discharge Care Plan Diagnosis: (1) Aortic stenosis (2) Psychosis (3) Otitis externa of left ear Goals to Promote Your Health * To prevent worsening of your condition and complications * To maintain your health at the optimal level Directions to Meet Your Goals Take your medications as prescribed Follow your dietary instruction Follow activity as directed Keep your appointments as scheduled Take your immunizations and boosters as scheduled If your symptoms worsen call your PCP, if no PCP go to Urgent Care Center or Emergency Room Smoking is Dangerous to Your Health. Avoid second hand smoke Call the 24-hour hour crisis hotline for domestic abuse at Phuong Singh MD Oct 27, 2016 13:11
--- NOTE | 2016-10-27 14:07 | PD.PSY.CON ---
Provisional Diagnosis Admission Date Oct 24, 2016 at 22:36 Caldwell I. Bipolar disorder Caldwell II. Deferred Caldwell III. HTN, DM, COPD, morbid obesity History of Present Illness Service Psychiatry Consult Requested By Primary Care Physician Unknown HPI The patient is a 51-year-old woman, domicile with her unemployed, on SSI, with psychiatric history of bipolar disorder, patient denies previous psychiatric admissions, she denies being on medications, she denies previous suicidal attempts, medical history of hypertension, diabetes, COPD, who was brought to the ER under Lucero act due to aggressive behavior and disorganized behavior at home. She was hospitalized in the medical floor due to acute hypo-kalemia, seizures, elevated troponin, respiratory failure. She is now medically clear. On psychiatric evaluation today patient is irritable, oppositional, at the beginning refusing to cooperate with psychiatry. She says that she doesn't have any psychiatric problem, she denies having any psychiatric diagnoses in the past. Patient seems to be oddly related, may be internally preoccupied and paranoid. She reports decreased sleep, poor appetite , decreased level of concentration, denies suicidal and homicidal ideation. Patient denies visual and auditory hallucinations. Patient also refused to elaborate about the reason and circumstances that led to Lucero act. She is oriented 3, denies alcohol and drug use. Review of Systems Constitutional: DENIES: Diaphoretic episodes, Fatigue, Fever, Weight gain, Weight loss, Chills, Dizziness, Change in appetite, Night Sweats Endocrine: DENIES: Abnorml menstrual pattern, Heat/cold intolerance, Polydipsia , Polyuria, Polyphagia Eyes: DENIES: Blurred vision, Diplopia, Eye inflammation, Eye pain, Vision loss , Photosensitivity, Double Vision Ears, nose, mouth, throat: DENIES: Tinnitus, Hearing loss, Vertigo, Nasal discharge, Oral lesions, Throat pain, Hoarseness, Ear Pain, Running Nose, Epistaxis, Sinus Pain, Toothache, Odynophagia Respiratory: COMPLAINS OF: Shortness of breath Cardiovascular: DENIES: Chest pain, Palpitations, Syncope, Dyspnea on Exertion , PND, Lower Extremity Edema, Orthopnea, Claudication Genitourinary: DENIES: Abnormal vaginal bleeding, Dysmenorrhea, Dyspareunia, Sexual dysfunction, Urinary frequency, Urinary incontinence, Urgency, Hematuria , Dysuria, Nocturia, Vaginal discharge Musculoskeletal: DENIES: Joint pain, Muscle aches, Stiffness, Joint Swelling, Back pain, Neck pain Integumentary: DENIES: Abnormal pigmentation, Pruritus, Rash, Nail changes, Breast masses, Breast skin changes, Nipple discharge Hematologic/lymphatic: DENIES: Bruising, Lymphadenopathy Immunologic/allergic: DENIES: Eczema, Urticaria Neurologic: DENIES: Abnormal gait, Headache, Localized weakness, Paresthesias, Seizures, Speech Problems, Tremor, Poor Balance Psychiatric: DENIES: Anxiety, Confusion, Mood changes, Depression, Hallucinations, Agitation, Suicidal Ideation, Homicidal Ideation, Delusions Past Family Social History Coded Allergies: No Known Allergies (Unverified , 10/24/16) Active Scripts Levetiracetam (Keppra)1,000 Mg Tab1,000 Mg PO BID #30 TAB Ref 0 Prov:Phuong Singh MD 10/27/16 Ofloxacin Opth Drops 0.3 % Drops10 Drop LEFT EAR DAILY 5 Days Ref 0 Prov:Phuong Singh MD 10/27/16 Current Medications Medications (Trade) Dose Ordered Sig/Gracie Route Start Time Stop Time Status Last Admin (NS 1000 ml Inj) 1,000 ml @ 84 mls/hr [id number] IV 10/24/16 22:46 10/27/16 10:22 (NS Flush) 2 ml UNSCH PRN .XX 10/24/16 23:00 (NS Flush) 2 ml BID .XX 10/25/16 09:00 10/25/16 21:00 (Tylenol) 650 mg Q6H PRN PO 10/24/16 23:00 10/26/16 21:10 (Ativan Inj) 1 mg Q1H PRN IV 10/24/16 23:00 (Zofran Inj) 4 mg Q6H PRN IV 10/24/16 23:00 (Heparin Inj) 5,000 units Q8H SQ 10/24/16 23:00 10/27/16 05:27 Miscellaneous Information 1 Q361D XX 10/24/16 23:00 (Chlorhexidine 2% Cloth) 3 pack Taper DAILY@04 TOP 10/25/16 04:00 10/21/17 03:59 (Chlorhexidine 2% Cloth) 3 pack UNSCH PRN TOP 10/24/16 23:00 (Tianna-Colace) 1 tab BID PO 10/25/16 09:00 10/26/16 08:31 (Milk Of Magnesia Liq) 30 ml Q12H PRN PO 10/24/16 23:00 (Senokot) 17.2 mg Q12H PRN PO 10/24/16 23:00 (Dulcolax Supp) 10 mg DAILY PRN RECTAL 10/24/16 23:00 Lactulose 30 ml 30 ml DAILY PRN PO 10/24/16 23:00 (Keppra 1000 Mg Inj) 100 ml @ 400 mls/hr Q12HR IV 10/25/16 09:00 10/27/16 08:22 (Pepcid) 10 mg Q12HR PO 10/25/16 21:00 10/27/16 08:26 (Pill Splitter) 1 ea UNSCH PRN OTHER 10/25/16 12:30 (Ocuflox 0.3% Opth Soln) 10 drop DAILY LEFT EAR 10/26/16 16:00 10/27/16 08:26 Family History Patient denies family psychiatric his Social History Patient was born and raised in [place], she lives in [place] with her , on SSI, highest level of education is high school Patient's Strengths (min. 2) Verbal communication Physical Exam On physical exam the patient doesn't have any tremors, no weakness, no psychomotor agitation or retardation Vital Signs Vital Signs Date Time Temp Pulse Resp B/P Pulse Ox O2 Delivery O2 Flow Rate FiO2 10/27/16 12:00 97.7 73 20 122/61 97 10/27/16 09:18 Nasal Cannula 2.00 I/O 10/26/16 10/26/16 10/27/16 08:00 16:00 00:00 Intake Total 884 ml 600 ml 1208 ml Output Total 0 ml Balance 884 ml 600 ml 1208 ml Mental Status Examination Appearance Obese woman, good hygiene, [facility], oppositional, resistant and irritable Speech: Hesitant Orientation: x3 Memory: Unremarkable Thought Process: Goal Directed Thought Content: Bizarre thinking, Paranoid Language No grammar, no pronunciation, or reading issues Fund of Knowledge Adequate for level of education Hallucination Type: None Attention and Concentration: Good Suicidal Ideation: Yes Homicidal Ideation: No Judgment: Poor Affect if Inappropriate: Flat Mood: Irritable Motor Activity: Normal gait Assessment & Plan Problem List: (1) Bipolar 1 disorder Assessment & Plan: On psychiatric evaluation today patient is poorly cooperative, resistant, oppositional not providing a lot of meaningful information to complete a psychiatric assessment at this moment. Patient is unable to elaborate about the reason of her hospitalization and the circumstances that led to Lucero act. Collateral information could not be reached. Since there is a vast documentation confirming that patient was in a manic-like state when she came to the hospital and the patient is reluctant to cooperate, she will be admitted in psychiatry under Lucero act on to collateral information is obtained and for further observation and potential medication indication. Patient can be transferred to psychiatry once medically stable. I will continue follow-up in the medical floor if necessary. ICD Code: F31.9 Assessment & Plan Estimated LOS: Axel Villaseñor MD Oct 27, 2016 14:07
--- NOTE | 2016-10-27 15:54 | HHI.DS ---
Discharge Summary Admission Date Oct 24, 2016 at 22:36 Discharge Date: Oct 27, 2016 Admitting Diagnosis apnea. Elevated troponin. Rhabdomyolysis. Renal insufficiency. (1) Bipolar 1 disorder ICD Code: F31.9 Diagnosis: Principal (2) Otitis externa of left ear ICD Code: H60.92 Diagnosis: Principal (3) Psychosis ICD Code: F29 Diagnosis: Principal (4) Aortic stenosis ICD Code: I35.0 Diagnosis: Principal (5) Hypokalemia ICD Code: E87.6 Diagnosis: Principal (6) Seizure ICD Code: R56.9 Diagnosis: Principal Procedures See hospital course Brief History - From Admission 51-year-old female patient was brought here as a Lucero Act by law enforcement. No meaningful history can be obtained from the patient. Her papers state that she has a history of bipolar disorder and is noncompliant with her medications. She has become psychotic and aggressive towards her family. She has been destructive in her home. Patient was medically cleared and moved to psychiatric area of the emergency room for psychiatric evaluation. Patient was found unresponsive with dusky color on the face. She has had a urinary incontinence at that time. ROSALIND MORAN was called. ED physician came to see the patient at bedside. Patient was unresponsive without any movement. Patient was given oxygen. Patient had pulse and blood pressure at that time. Patient was brought to medical bed for evaluation. Patient was lethargic and answer questions occasionally. Patient states that she has history of seizure and has not been taking her seizure medication. Patient denies any headache. Patient denies any chest pain or shortness of breath. Patient denies abdominal pain. CBC/BMP: 10/26/16 0733 10/27/16 0555 Significant Findings Laboratory Tests Test 10/24/16 10/24/16 10/24/16 10/25/16 19:00 20:13 23:13 05:02 Sodium Level 135 MEQ/L (136-145) Potassium Level 3.3 MEQ/L 3.2 MEQ/L (3.5-5.1) (3.5-5.1) Chloride Level 97 MEQ/L (98-107) Carbon Dioxide Level 18.3 MEQ/L (21.0-32.0) Anion Gap 20 MEQ/L (5-15) Blood Urea Nitrogen 19 MG/DL (7-18) 19 MG/DL (7-18) Creatinine 1.57 MG/DL 1.01 MG/DL 1.10 MG/DL (0.50-1.00) (0.50-1.00) (0.50-1.00) Estimat Glomerular Filtration 35 ML/MIN (>89) 58 ML/MIN (>89) 52 ML/MIN (>89) Rate Random Glucose 284 MG/DL 171 MG/DL 137 MG/DL (74-106) (74-106) (74-106) Total Creatine Kinase 1479 U/L 1078 U/L (26-192) (26-192) Troponin I 0.13 NG/ML 0.11 NG/ML 0.11 NG/ML (0.02-0.05) (0.02-0.05) (0.02-0.05) Blood Gas Oxygen Saturation 89 % (90-100) Arterial Blood pH 7.37 (7.380-7.420) Arterial Blood Partial 44 mmHg (38-42) Pressure CO2 Aspartate Amino Transf 56 U/L (15-37) 49 U/L (15-37) (AST/SGOT) Albumin 3.2 GM/DL 3.0 GM/DL (3.4-5.0) (3.4-5.0) White Blood Count 12.5 TH/MM3 (4.0-11.0) Hemoglobin 11.1 GM/DL (11.6-15.3) Mean Corpuscular Hemoglobin 26.0 PG (27.0-34.0) Mean Corpuscular Hemoglobin 30.6 % Concent (32.0-36.0) Monocytes (%) (Auto) 9.9 % (0.0-8.0) Monocytes # (Auto) 1.2 TH/MM3 (0-0.9) Test 10/26/16 10/27/16 07:33 05:55 Hemoglobin 11.1 GM/DL (11.6-15.3) Mean Corpuscular Hemoglobin 26.7 PG (27.0-34.0) Mean Corpuscular Hemoglobin 31.4 % Concent (32.0-36.0) Potassium Level 3.0 MEQ/L 3.4 MEQ/L (3.5-5.1) (3.5-5.1) Estimat Glomerular Filtration 84 ML/MIN (>89) Rate Random Glucose 117 MG/DL 108 MG/DL (74-106) (74-106) Imaging Last Impressions Chest X-Ray 10/24/162142 Signed Impressions: Service Date/Time: Monday, October 24, 2016 21:56 - CONCLUSION: Cardiomegaly with clear lungs. Omi Shetty MD Head CT 10/24/[id number] Signed Impressions: Service Date/Time: Monday, October 24, 2016 21:59 - CONCLUSION: No acute intracranial disease. Omi Shetty MD PE at Discharge GENERAL: morbid obese female in NAD left eat + purulent drainage. inner eat WNL EYES: No scleral icterus. No injection or drainage. NECK: Supple, trachea midline. No JVD or lymphadenopathy. CARDIOVASCULAR: Regular rate and rhythm. 3/6 systolic heart murmur. RESPIRATORY: Breath sounds equal bilaterally. No accessory muscle use. GASTROINTESTINAL: Abdomen soft, non-tender, nondistended. MUSCULOSKELETAL: No cyanosis, or edema. BACK: Nontender without obvious deformity. No CVA tenderness. Pt update on day of discharge Follow-up for respiratory failure, left ear infection and hypokalemia Patient seen after a heated argument over the phone with a friend. She stated she had no complaints. Continues to have left ear pain. She remains afebrile. Deny any shortness of breathing or cough. Hospital Course Respiratory failure with hypoxemia - Untreated KELVIN versus obesity hypoventilation syndrome -Sewing Machine Operator Semiautomatic was consulted and recommended PFT and outpatient sleep study. - Symptoms resolved on its own. This was most likely positional. Bipolar disorder -Patient is Lucero act. -Patient was supposed to be admitted to inpatient psych but up CODE BLUE was called. -Psych we consulted and recommend patient be transferred to the psych unit once medically stable. Hypokalemia -Replenish and resolved. Elevated troponins -Mildly elevated and stable. -Per manager med surg patient does have a previous known aortic stenosis. Patient is asymptomatic and can follow-up with Dr. Hancock. Aortic stenosis -Asymptomatic. Follow with Dr. Hancock. Seizure disorder -Patient had a questionable seizure. Neurology was consulted. Patient was put on Keppra. Per neurologist continue with the current dose of Keppra. Neurologist also clear patient to go psychiatric unit. Pt Condition on Discharge: Good Discharge Disposition: Disc to Psych Care Fac Discharge Time: <= 30 minutes Discharge Instructions DIET: Follow Instructions for: As Tolerated, No Restrictions Activities you can perform: Regular-No Restrictions Follow up Referrals: PCP Follow-up - 1 Week New Medications: Levetiracetam (Keppra) 1,000 Mg Tab 1000 MG PO BID Control Seizures #30 Ref 0 TAB Ofloxacin Opth Drops (Ofloxacin Opth Drops) 0.3 % Drops 10 DROP LEFT EAR DAILY left external ear infection Days 5 Ref 0 VIAL Phuong Singh MD Oct 27, 2016 15:54
[2016-10-27 16:00] VITALS: BP 176/78; PULSE 65; RESP 20; TEMP 97.7; O2SAT 96
[2016-10-27] MEDS ORDERED: FAMO1TAB37 PO (18:48)
[2016-10-27] MEDS ORDERED: OXYB5TAB10 PO (18:48)
[2016-10-27] MEDS ORDERED: LANTUS2P SQ (18:48)
[2016-10-27] MEDS ORDERED: FURO40TA PO (18:48)
[2016-10-27] MEDS ORDERED: SIMV40TA PO (18:49)
[2016-10-27] MEDS ORDERED: IRBE300T11 PO (18:49)
[2016-10-28] MEDS ORDERED: KEPP10002 PO (14:42)
[2016-10-28] MEDS ORDERED: OFLO0.3D5 LEFT EAR (14:42)
[2016-10-28] MEDS ORDERED: MUPI2OIN TOPICAL (14:42)
== END 2016-10-27 17:19 | DRG 100 ==
LOC: NEPD 15:10 → NEDA 22:36 → NEDH 10-25 02:49 → N04B 10-25 13:17
PROVIDERS: ADMIT Family Medicine; ATTEND Family Medicine
DX: G40.909 Epilepsy, unspecified, not intractable, without status epilepticus (principal); J96.91 Respiratory failure, unspecified with hypoxia; N17.9 Acute kidney failure, unspecified; M62.82 Rhabdomyolysis; Z68.44 Body mass index [BMI] 60.0-69.9, adult; E66.2 Morbid (severe) obesity with alveolar hypoventilation; E66.01 Morbid (severe) obesity due to excess calories; Z91.14 Patient's other noncompliance with medication regimen; I10 Essential (primary) hypertension; F31.9 Bipolar disorder, unspecified; I35.0 Nonrheumatic aortic (valve) stenosis; Z87.891 Personal history of nicotine dependence; H60.92 Unspecified otitis externa, left ear; E87.6 Hypokalemia; R74.8 Abnormal levels of other serum enzymes
CPT/HCPCS: 36600; 70450; 71010; 76937; 80048; 80053; 80307; 82550; 82552; 82805; 82948; 83735; 83880; 84100; 84132; 84484; 85025; 85027; 87641; 93005; 93306; 94060; 95819; 96361; 96365; 96366; 96375; J1644; J1953; J2060; J7030

== ENCOUNTER 2016-10-27 14:46 | Inpatient (IN) | payer OTHER ==
[~2016-10-27] VITALS: Ht 160 cm; Wt 149.7 kg
[~2016-10-27 14:46] MED LIST: KEPP10002 PO; OFLO0.3D5 LEFT EAR
[2016-10-27 18:14] VITALS: BP 124/63; PULSE 67; RESP 22; O2SAT 96
[2016-10-27] MEDS ORDERED: LANTUS2P SQ (18:48)
[2016-10-27] MEDS ORDERED: FURO40TA PO (18:48)
[2016-10-27] MEDS ORDERED: OXYB5TAB10 PO (18:48)
[2016-10-27] MEDS ORDERED: FAMO1TAB37 PO (18:48)
[2016-10-27] MEDS ORDERED: SIMV40TA PO (18:49)
[2016-10-27] MEDS ORDERED: IRBE300T11 PO (18:49)
[2016-10-27] MEDS ORDERED: ACETAMINOPHEN 325 MG TAB PO PRN (19:00)
[2016-10-27] MEDS ORDERED: MAGNESIUM HYDROXIDE SUSP 30 ML CUP PO PRN (19:00)
[2016-10-27] MEDS ORDERED: LORazepam 1 MG TAB PO PRN (19:00)
[2016-10-27] MEDS ORDERED: BENZTROPINE MESYLATE 1 MG TAB PO PRN (19:00)
[2016-10-27] MEDS ORDERED: traZODone HCL 50 MG TAB PO PRN (19:00)
[2016-10-27] MEDS ORDERED: BENZTROPINE MESYLATE 2 MG/2 ML VIAL IM PRN (19:00)
[2016-10-27] MEDS ORDERED: ALUMINUM/MAGNESIUM/SIMETH 30 ML CUP PO PRN (19:00)
[2016-10-27] MEDS ORDERED: LORazepam 2 MG/ML VIAL IM PRN (19:00)
[2016-10-27] MEDS ORDERED: PLEASE DISCONTINUE PREVIOUS SUPPLEMENTAL SCALE INSULIN ORDERS ONE (19:15)
[2016-10-27] MEDS ORDERED: DEXTROSE 50% IN WATER 50 ML VIAL(D50) IV PUSH PRN (19:15)
[2016-10-27] MEDS ORDERED: GLUCAGON 1 MG/ML VIAL OTHER PRN (19:15)
[2016-10-27] MEDS: LOW DOSE INSULIN NOVOLOG SUPPLEMENTAL SCALE SQ SCH (20:07)
[2016-10-27] MEDS: levETIRAcetam 500 MG TAB PO SCH (20:42)
[2016-10-28 05:47] VITALS: BP 83/55; PULSE 72; RESP 16; TEMP 97.7; O2SAT 98
[2016-10-28] MEDS: LOW DOSE INSULIN NOVOLOG SUPPLEMENTAL SCALE SQ SCH ×3 (06:38→15:46)
[2016-10-28] MEDS: levETIRAcetam 500 MG TAB PO SCH (08:35)
[2016-10-28] MEDS ORDERED: OFLOXACIN 0.3% OPTH SOLN 5 ML BTL LEFT EAR SCH (09:00)
--- NOTE | 2016-10-28 09:07 | PD.CONS ---
HPI Service [facility] Consult Requested By Reason for Consult medical management Primary Care Physician Unknown Diagnoses: History of Present Illness This is a 51 y/o F with hx of bipolar disorder, aortic stenosis, ? seizure, obesity, ? sleep apnea who was admitted to the psych unit due to psychosis. Prior to this episode patient was on the medical floor secondary to questionable "code blue" in which she was admitted to the medical floor. Throughout hospital course patient did well since was discharged to inpatient psychiatry. [facility] consulted for medical management. Medical records reviewed. Blood pressure low. Patient denied any lightheadedness or dizziness, chest pain , shortness of breathing, palpitation. She complained of pain at a fingernail bed. Otherwise she had no other complaints. All other review symptoms reviewed and negative. Past Family Social History Allergies: Coded Allergies: No Known Allergies (Unverified , 10/24/16) Past Medical History Aortic stenosis Bipolar disorder Questionable sleep apnea Morbid obesity Hypoxia Diabetes Hyperlipidemia Hypertension Past Surgical History Hysterectomy Reported Medications Reported Meds & Active Scripts Active Keppra (Levetiracetam) 1,000 Mg Tab 1,000 Mg PO BID Ofloxacin Opth Drops 0.3 % Drops 10 Drop LEFT EAR DAILY 5 Days Reported Simvastatin 40 Mg Tab 40 Mg PO HS Irbesartan 300 Mg Tab 300 Mg PO DAILY Pepcid (Famotidine) 20 Mg Tab 10 Mg PO BID Ditropan (Oxybutynin Chloride) 5 Mg Tab 5 Mg PO BID Furosemide 40 Mg Tab 40 Mg PO DAILY Lantus Inj (Insulin Glargine) 1,000 Unit/10 Ml Vial 40 Units SQ HS Active Ordered Medications Current Medications Lorazepam (Ativan) 1 mg Q6H PRN PO MODERATE TO SEVERE ANXIETY Last administered on 10/27/16t 20:44; Start 10/27/16 at 19:00 Lorazepam (Ativan Inj) 1 mg Q6H PRN IM MODERATE TO SEVERE ANXIETY; Start at 19:00 Benztropine Mesylate (Cogentin) 1 mg Q12H PRN PO EXTRA PYRAMIDAL SYMPTOMS; Start 10/27/16 at 19:00 Benztropine Mesylate (Cogentin Inj) 1 mg Q12H PRN IM EXTRA PYRAMIDAL SYMPTOMS; Start 10/27/16 at 19:00 Trazodone HCl (Desyrel) 50 mg HS PRN PO INSOMNIA; Start 10/27/16 at 19:00 Acetaminophen (Tylenol) 650 mg Q4H PRN PO Pain 1-5 or Temp >101F; Start at 19:00 Magnesium Hydroxide (Milk Of Magnesia Liq) 30 ml DAILY PRN PO CONSTIPATION; Start 10/27/16 at 19:00 Al Hydrox/Mg Hydrox/Simethicone (Mag-Al Plus Susp Liq) 30 ml Q6H PRN PO DYSPEPSIA; Start 10/27/16 at 19:00 Levetriacetam (Keppra) 1,000 mg BID PO Last administered on 10/28/16 08:35; Start 10/27/16 at 21:00 Ofloxacin (Ocuflox 0.3% Opt Soln) 10 drop DAILY LEFT EAR Last administered on 10/28/16 08:31; Start 10/28/16 at 09:00 Miscellaneous Medication ([facility] Please discontinue previ... ONCE ONCE .XX ; Start 10/27/16 at 19:15; Stop 10/27/16 at 19:16; Status DC Dextrose (D50w (Vial) Inj) 25 ml UNSCH PRN IV PUSH HYPOGLYCEMIA - SEE COMMENTS ; Start 10/27/16 at 19:15 Glucagon (Glucagon Inj) 1 mg UNSCH PRN OTHER HYPOGLYCEMIA-SEE COMMENTS; Start 10/27/16 at 19:15 Insulin Aspart (NovoLOG SUPPLEMENTAL SCALE) 1 ACHS SLIDING SCALE SQ ; Start at 21:00 Family History No family history of seizure, cancer or early coronary disease Social History No history of alcohol tobacco or illicit drug abuse Physical Exam Vital Signs Vital Signs Date Time Temp Pulse Resp B/P Pulse Ox O2 Delivery O2 Flow Rate FiO2 10/28/16 05:47 97.7 72 16 83/55 98 10/27/16 18:14 67 22 124/63 96 Physical Exam GENERAL: This is a well-nourished, well-developed patient, in no apparent distress. SKIN: Right third digit with mild erythema at the nailbed with palpation. HEAD: Atraumatic. Normocephalic. No temporal or scalp tenderness. EYES: Pupils equal round and reactive. Extraocular motions intact. No scleral icterus. No injection or drainage. ENT: Nose without bleeding, purulent drainage or septal hematoma. Throat without erythema, tonsillar hypertrophy or exudate. Uvula midline. Airway patent. NECK: Trachea midline. No JVD or lymphadenopathy. Supple, nontender, no meningeal signs. CARDIOVASCULAR: Regular rate and rhythm without murmurs, gallops, or rubs. RESPIRATORY: Clear to auscultation. Breath sounds equal bilaterally. No wheezes , rales, or rhonchi. GASTROINTESTINAL: Abdomen soft, non-tender, nondistended. No hepato-splenomegaly , or palpable masses. No guarding. MUSCULOSKELETAL: Extremities without clubbing, cyanosis, or edema. No joint tenderness, effusion, or edema noted. No calf tenderness. Negative Homans sign bilaterally. NEUROLOGICAL: Awake and alert. Cranial nerves II through XII intact. Motor and sensory grossly within normal limits. Five out of 5 muscle strength in all muscle groups. Normal speech. Assessment and Plan Assessment and Plan 51-year-old female with history of bipolar disorder presented with psychosis Bipolar disorder -Being managed by psychiatry. Type 2 diabetes insulin-dependent -Patient was placed on the insulin sliding scale. Continue with insulin sliding scale. -She is on Lantus 40 units at night. -Based on blood sugars will determine how much Levemir to restart patient on. Hypertension -Patient patient had a low blood pressure quarter this morning. There was no repeat to see if this was a true value. Will repeat blood pressure reading. Most likely this was an air patient is asymptomatic. -Continue to hold antihypertensive medication. Otitis external -Continue with ofloxacin. Paronychia -We will apply Bactroban. Questional seizure disorder -Per neurologist continue with Keppra 1000 units by mouth twice a day. Aortic stenosis -Patient to follow-up with Dr. Hancock her decision support manager. Hypoxia -Most likely patient has sleep apnea. She needs a sleep study as outpatient. Morbid obesity. Hyperlipidemia -Can resume home medication. Code Status full Discussed Condition With patient Phuong Singh MD Oct 28, 2016 09:07
[2016-10-28] MEDS ORDERED: MUPIROCIN 2% OINT 22 GM TUBE TOPICAL SCH (09:15)
[2016-10-28] MEDS ORDERED: MAGNESIUM HYDROXIDE SUSP 30 ML CUP PO PRN (12:30)
[2016-10-28] MEDS ORDERED: ALUMINUM/MAGNESIUM/SIMETH 30 ML CUP PO PRN (12:30)
[2016-10-28] MEDS ORDERED: ACETAMINOPHEN 325 MG TAB PO PRN (12:30)
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
[2016-10-28 13:03] LABS: ANION GAP 9 MEQ/L (5-15); BICARBONATE 27.2 MEQ/L (21.0-32.0); BLOOD UREA NITROGEN 8 MG/DL (7-18); CHLORIDE 103 MEQ/L (98-107); GLOMERULAR FILTRATION RATE 91 ML/MIN (>89); HDL CHOLESTEROL 42.7 MG/DL (40.0-60.0); LDL CHOLESTEROL 142 MG/DL (0-99); MAGNESIUM 2.5 MG/DL (1.5-2.5); POTASSIUM 4.2 MEQ/L (3.5-5.1); SODIUM (NA) 139 MEQ/L (136-145)
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
[2016-10-28 13:38] VITALS: BP 130/60; PULSE 67; O2SAT 97
[2016-10-28] MEDS ORDERED: OFLO0.3D5 LEFT EAR (14:42)
[2016-10-28] MEDS ORDERED: MUPI2OIN TOPICAL (14:42)
[2016-10-28] MEDS ORDERED: KEPP10002 PO (14:42)
[2016-10-28 15:56] LABS: HEMOGLOBIN A1a 1.2 %; HEMOGLOBIN A1b 2.2 %; HEMOGLOBIN Ao 82.3 %; HEMOGLOBIN P3 3.8 %
[2016-10-28 17:33] VITALS: BP 119/60; PULSE 77; RESP 18; TEMP 98.1; O2SAT 95
== END 2016-10-28 18:30 | disposition home or self-care (01) | DRG 882 ==
LOC: H260 17:40
PROVIDERS: ADMIT Psychiatry & Neurology Psychiatry; ATTEND Psychiatry & Neurology Psychiatry
DX: F43.25 Adjustment disorder with mixed disturbance of emotions and conduct (principal); F05 Delirium due to known physiological condition; Z68.43 Body mass index [BMI] 50.0-59.9, adult; E11.9 Type 2 diabetes mellitus without complications; I10 Essential (primary) hypertension; L03.019 Cellulitis of unspecified finger; F31.9 Bipolar disorder, unspecified; E66.01 Morbid (severe) obesity due to excess calories; Z79.4 Long term (current) use of insulin; I35.0 Nonrheumatic aortic (valve) stenosis; G47.30 Sleep apnea, unspecified; E78.5 Hyperlipidemia, unspecified; F41.9 Anxiety disorder, unspecified; G47.00 Insomnia, unspecified; H66.90 Otitis media, unspecified, unspecified ear
CPT/HCPCS: 80048; 80061; 82948; 83036; 83735